=== PATIENT | female | born 1975 | race Hispanic/Latino ===

== ENCOUNTER 2017-03-23 10:16 | Inpatient (IN) | payer MEDICAID ==
[2017-03-23 10:17] VITALS: BMI 21.2
--- NOTE | 2017-03-23 11:49 | C.PDOC ---
History Of Present Illness 41 y/o female presents to emergency department via EMS for public intoxication. Patient admits to drinking alcohol this morning, and "all night, every night". Patient requests detox for alcohol. Denies any other drug use, suicidal ideation , homicidal ideation, or other physical complaints at this time. Time Seen by Provider: 03/23/17 11:15 Chief Complaint (Nursing): Substance Abuse History Per: Patient History/Exam Limitations: no limitations Onset/Duration Of Symptoms: Persistent Current Symptoms Are (Timing): Still Present Modifying Factor(s): Alcohol Associated Symptoms: denies: Suicidal Thoughts, Suicidal Plan Recent travel outside of the [place]: No Past Medical History Reviewed: Historical Data, Nursing Documentation, Vital Signs Vital Signs: Last Vital Signs Temp 98.7 F 03/23/17 15:21 Pulse 90 03/23/17 15:21 Resp 18 03/23/17 15:21 BP 115/75 03/23/17 15:21 Pulse Ox 99 03/23/17 17:49 - Medical History PMH: Anemia (hx), Anxiety, Bipolar Disorder, Depression, Diabetes (Cousin has diabetes), HTN (mother has high blood pressure), Hyperthyroidism, Hypothyroidism , Schizophrenia - [facility] Procedures GROUP SHOE COBBLER FOR SUBSTANCE ABUSE, COGNITIVE BEHAVIORAL (02/22/16) GROUP PSYCHOTHERAPY (05/17/16) INDIVID PSYCHOTHERAP NEC (01/10/15) INDIVIDUAL PSYCHOTHERAPY, BEHAVIORAL (07/14/15) INDIVIDUAL PSYCHOTHERAPY, COGNITIVE-BEHAVIORAL (05/17/16) INDIVIDUAL PSYCHOTHERAPY, SUPPORTIVE (02/22/16) OTHER GROUP THERAPY (01/10/15) Family History: States: Unknown Family Hx - Social History Hx Tobacco Use: Yes (heavy smoker) Hx Alcohol Use: Yes (Occasionally use.) Hx Substance Use: Yes - Immunization History Hx Tetanus Toxoid Vaccination: No Hx Influenza Vaccination: No Hx Pneumococcal Vaccination: No Review Of Systems Except As Marked, All Systems Reviewed And Found Negative. Constitutional: Negative for: Fever, Chills Cardiovascular: Negative for: Chest Pain, Palpitations Respiratory: Negative for: Cough, Shortness of Breath, Wheezing Gastrointestinal: Negative for: Nausea, Vomiting, Abdominal Pain Skin: Negative for: Rash Psych: Negative for: Withdrawal Physical Exam - Physical Exam Appears: Non-toxic, No Acute Distress, Other (awake, alert, in no acute distress ) Skin: Normal Color, Warm, Dry Head: Atraumatic, Normacephalic Eye(s): bilateral: Normal Inspection, PERRL, EOMI Oral Mucosa: Moist Chest: Symmetrical Cardiovascular: Rhythm Regular Respiratory: Normal Breath Sounds, No Rales, No Rhonchi, No Wheezing Gastrointestinal/Abdominal: Soft, No Tenderness, No Guarding, No Rebound Back: Normal Inspection Extremity: Normal ROM, Capillary Refill (< 2 sec. ) Neurological/Psych: Oriented x3, Normal Speech, Normal Cognition ED Course And Treatment - Laboratory Results Result Diagrams: 03/23/17 12:15 03/23/17 12:15 O2 Sat by Pulse Oximetry: 99 (RA) Pulse Ox Interpretation: Normal Progress Note: Patient was medically cleared. Labs reviewed. Crisis patient case coordinator to evaluate patient at bedside. Patient accepted for admission under Dr. Santana. 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 - Scribe Statement The provider has reviewed the documentation as recorded by the Scribe Alfred Bowers All medical record entries made by the Jesseibjoann were at my direction and personally dictated by me. I have reviewed the chart and agree that the record accurately reflects my personal performance of the history, physical exam, medical decision making, and the department course for this patient. I have also personally directed, reviewed, and agree with the discharge instructions and disposition. Decision To Admit - Pt Status Changed To: Hospital Disposition Of: Inpatient - Admit Certification Admit to Inpatient:: After my assessment, the patient will require hospitalization for at least two midnights. This is because of the severity of symptoms shown, intensity of services needed, and/or the medical risk in this patient being treated as an outpatient. - InPatient: Physician Admission Certification: I certify that this patient requires 2 or more midnights of care for the following reason:: Patient will need more then 2 days of inpatient admission for alcohol detox. - . Bed Request Type: Detox Admitting Physician: Angie Santana Patient Diagnosis: Alcohol dependence
[2017-03-23 12:22] LABS: BASO % 0.9 % (0.0-2.0); HEMATOCRIT 38.2 % (34.0-47.0); LYMPH % 23.2 % (20.0-40.0); MEAN CORPUSCULAR HEMOGLOBIN 27.8 pg (27.0-31.0); MEAN CORPUSCULAR HGB CONC 33.4 g/dL (33.0-37.0); MEAN PLATELET VOLUME 8.4 fL (7.2-11.7); MONO # 0.3 K/uL (0.0-0.8); MONO % 6.9 % (0.0-10.0); NRBC % 0.1 % (0.0-2.0); RED CELL DISTRIBUTION WIDTH 17.9 % (11.5-14.5); WHITE BLOOD COUNT 4.2 K/uL (4.8-10.8)
[2017-03-23 12:24] LABS: MEAN CELL VOLUME 83.3 fL (81.0-99.0)
[2017-03-23 12:30] LABS: CHLORIDE 102 mmol/L (98-107)
[2017-03-23 12:31] LABS: POTASSIUM 4.2 mmol/L (3.6-5.2); SODIUM 138 mmol/L (132-148)
[2017-03-23 12:33] LABS: ALB/GLOB RATIO 0.9 (1.0-2.1); ALKALINE PHOSPHATASE 96 U/L (38-126); ALT/SGPT 37 U/L (9-52); AST/SGOT 30 U/L (14-36); BILIRUBIN,TOTAL 0.5 mg/dL (0.2-1.3); BLOOD UREA NITROGEN 14 mg/dL (7-17); CARBON DIOXIDE 26 mmol/L (22-30); GFR AFRICAN-AMERICAN > 60; TOTAL PROTEIN 7.7 g/dL (6.3-8.3)
[2017-03-23 12:34] LABS: ALCOHOL SERUM 95 mg/dl (0-10); CALCIUM 8.6 mg/dl (8.6-10.4); GLUCOSE,RANDOM 78 mg/dL (65-105)
[2017-03-23 13:03] LABS: RBC URINE 11 /hpf (0-3); URINE BACTERIA FEW (<OCC); URINE BILIRUBIN NEGATIVE (NEGATIVE); URINE BLOOD 2+ (NEGATIVE); URINE COLOR Yellow (YELLOW); URINE GLUCOSE (UA) NORMAL (Normal); URINE KETONE NEGATIVE (NEGATIVE); URINE LEUKOCYTE ESTERASE TRACE Leu/uL (Negative); URINE PROTEIN NEGATIVE (NEGATIVE); URINE UROBILINOGEN NORMAL mg/dL (0.2-1.0); WBC URINE 3 /hpf (0-5)
[2017-03-23 14:10] VITALS: RESP 18
[2017-03-23 15:21] VITALS: BP 115/75; PULSE 90; TEMP 98.7
[2017-03-23] MEDS ORDERED: Multiple Vitamins Tab PO SCH (15:30)
[2017-03-23 17:49] VITALS: O2SAT 99
--- NOTE | 2017-03-25 23:01 | PCM.PSYCH ---
Initial Psychiatric Evaluation - Initial Psychiatric Evaluation Type of Admission: Voluntary Legal Status: Capacity Past Psychiatric History - Past Psychiatric History Pertinent Medical Hx (Current Medical&Sleep Prob, Allergies): Allergies Allergy/AdvReac Type Severity Reaction Status Date / Time No Known Allergies Allergy Verified 03/23/17 10:40 Benztropine [Cogentin] 1 mg PO BID #60 tab 05/12/16 Gabapentin [Neurontin] 300 mg PO TID #90 cap 05/12/16 Haloperidol [Haldol] 10 mg PO BID #60 tab 05/12/16 Levothyroxine [Synthroid] 25 mcg PO DAILY@0630 #30 tab 05/12/16 Mirtazapine [Remeron] 30 mg PO HS #30 tab 05/12/16 Sertraline [Zoloft] 200 mg PO DAILY #60 tab 05/12/16 traZODone [Desyrel] 50 mg PO HS #30 tab 05/12/16 Nitrofurantoin Macrocrystals [Macrobid] 1 cap PO BID #9 cap 06/15/16
== END 2017-03-23 15:35 | disposition left against medical advice (07) | DRG 430 ==
LOC: C.ER 10:16 → C.7D 14:38
PROVIDERS: ADMIT Psychiatry & Neurology Psychiatry; ATTEND Psychiatry & Neurology Psychiatry
DX: F31.9 Bipolar disorder, unspecified (principal); F10.220 Alcohol dependence with intoxication, uncomplicated; Y90.4 Blood alcohol level of 80-99 mg/100 ml; F17.210 Nicotine dependence, cigarettes, uncomplicated

== ENCOUNTER 2017-07-15 06:43 | Emergency (ER) | payer MEDICAID ==
[2017-07-15 06:43] VITALS: BMI 21.2
[2017-07-15 06:50] VITALS: BP 139/90; PULSE 102; RESP 20; TEMP 98.3; O2SAT 98
[2017-07-15] MEDS ORDERED: Naproxen 550 mg Tab PO STA (07:20)
--- NOTE | 2017-07-15 07:22 | C.PDOC ---
History Of Present Illness 41-year-old female, presents to the emergency department with complaints of four day duration of runny nose, sore throat and cough. Patient denies fevers, shortness of breath, chest pain, nausea/vomiting, symptoms. change in bowel habits, or any other associated symptoms. No other complaints at this time. Time Seen by Provider: 07/15/17 07:09 Chief Complaint (Nursing): Cough, Cold, Congestion History Per: Patient History/Exam Limitations: no limitations Onset/Duration Of Symptoms: Days Current Symptoms Are (Timing): Still Present Past Medical History Reviewed: Historical Data, Nursing Documentation, Vital Signs Vital Signs: Last Vital Signs Temp 98.3 F 07/15/17 06:48 Pulse 102 H 07/15/17 06:48 Resp 20 07/15/17 06:48 BP 139/90 07/15/17 06:48 Pulse Ox 98 07/15/17 07:22 - Medical History PMH: Anemia (hx), Anxiety, Bipolar Disorder, Depression, Diabetes (Cousin has diabetes), HTN (mother has high blood pressure), Hyperthyroidism, Hypothyroidism , Schizophrenia - [facility] Procedures GROUP BOX SPRING MAKER FOR SUBSTANCE ABUSE, COGNITIVE BEHAVIORAL (02/22/16) GROUP PSYCHOTHERAPY (05/17/16) INDIVID PSYCHOTHERAP NEC (01/10/15) INDIVIDUAL PSYCHOTHERAPY, BEHAVIORAL (07/14/15) INDIVIDUAL PSYCHOTHERAPY, COGNITIVE-BEHAVIORAL (05/17/16) INDIVIDUAL PSYCHOTHERAPY, SUPPORTIVE (02/22/16) OTHER GROUP THERAPY (01/10/15) Family History: States: No Known Family Hx - Social History Hx Tobacco Use: Yes (heavy smoker) Hx Alcohol Use: Yes (Occasionally use.) Hx Substance Use: No - Immunization History Hx Tetanus Toxoid Vaccination: No Hx Influenza Vaccination: No Hx Pneumococcal Vaccination: No Review Of Systems Constitutional: Positive for: Malaise. Negative for: Fever ENT: Positive for: Throat Pain Respiratory: Positive for: Cough. Negative for: Shortness of Breath Gastrointestinal: Negative for: Nausea, Vomiting Musculoskeletal: Negative for: Back Pain Neurological: Negative for: Weakness, Numbness, Headache, Dizziness Physical Exam - Physical Exam Appears: Non-toxic, No Acute Distress Skin: Warm, Dry, No Rash Head: Atraumatic, Normacephalic Eye(s): bilateral: Normal Inspection, PERRL Nose: Normal Oral Mucosa: Moist Lips: Normal Appearing Neck: Normal ROM, Supple Chest: Symmetrical Cardiovascular: Rhythm Regular, No Murmur Respiratory: Normal Breath Sounds, No Accessory Muscle Use Extremity: Normal ROM Neurological/Psych: Oriented x3, Normal Speech ED Course And Treatment O2 Sat by Pulse Oximetry: 98 (on RA) Pulse Ox Interpretation: Normal Progress Note: Patient treated with Naproxen and Tessalon. Disposition Counseled Patient/Family Regarding: Diagnosis, Need For Followup, Rx Given - Disposition Referrals: [facility] [Outside] Disposition: HOME/ ROUTINE Disposition Time: 19:30 Condition: STABLE Additional Instructions: FOLLOW UP WITH YOUR DOCTOR/CLINIC IN 1-2 DAYS USE MEDICATIONS DIRECTED RETURN TO ER IF SYMPTOMS WORSEN Prescriptions: Benzonatate [Tessalon Perles] 100 mg PO BID PRN #15 sgl PRN Reason: Cough Naproxen 375 mg PO BID PRN #20 tablet PRN Reason: pain Instructions: Upper Respiratory Infection (ED), Viral Syndrome (ED) Forms: [employer] (Spanish), Work Excuse Print Language: ESTONIAN - POA Present On Arrival: None - Clinical Impression Clinical Impression: Upper respiratory infection, Viral disease - Scribe Statement The provider has reviewed the documentation as recorded by the Scribe (Jaxon Guevara) All medical record entries made by the Scribe were at my direction and personally dictated by me. I have reviewed the chart and agree that the record accurately reflects my personal performance of the history, physical exam, medical decision making, and the department course for this patient. I have also personally directed, reviewed, and agree with the discharge instructions and disposition.
[2017-07-15] MEDS ORDERED: Naproxen 550 mg Tab PO ONE (07:28)
== END 2017-07-15 07:35 | disposition home or self-care (01) ==
LOC: C.ER 06:43
DX: J06.9 Acute upper respiratory infection, unspecified (principal); F17.210 Nicotine dependence, cigarettes, uncomplicated

== ENCOUNTER 2017-07-16 23:21 | Emergency (ER) | payer MEDICAID ==
[2017-07-16 23:21] VITALS: BMI 21.2
[2017-07-16 23:37] VITALS: BP 126/78; PULSE 102; RESP 20; TEMP 98.6; O2SAT 98
--- NOTE | 2017-07-17 00:44 | C.PDOC ---
History Of Present Illness 41 year old female presents to the ER with a complaint of a cough for the past 3 -4 days. Patient allegedly was seen by her PMD who told her she has the flu andstarted her on medication, however, she reports the cough continues. Denies fever, chills, chest pain, or SOB. Time Seen by Provider: 07/17/17 00:12 Chief Complaint (Nursing): Flu-like Symptoms History Per: Patient History/Exam Limitations: no limitations Onset/Duration Of Symptoms: Days Current Symptoms Are (Timing): Still Present Location Of Pain: None Sick Contacts (Context): None Associated Symptoms: Cough. denies: Fever, Chills, Sputum, Nasal Congestion, Vomiting, Diarrhea Ear Symptoms: Bilateral: None Recent travel outside of the [place]: No Past Medical History Reviewed: Historical Data, Nursing Documentation, Vital Signs Vital Signs: Last Vital Signs Temp 98.6 F 07/16/17 23:33 Pulse 102 H 07/16/17 23:33 Resp 20 07/16/17 23:33 BP 126/78 07/16/17 23:33 Pulse Ox 98 07/17/17 00:57 - Medical History PMH: Anemia (hx), Anxiety, Bipolar Disorder, Depression, Diabetes (Cousin has diabetes), HTN (mother has high blood pressure), Hyperthyroidism, Hypothyroidism , Schizophrenia - [facility] Procedures GROUP TEMPER MILL ROLLER FOR SUBSTANCE ABUSE, COGNITIVE BEHAVIORAL (02/22/16) GROUP PSYCHOTHERAPY (05/17/16) INDIVID PSYCHOTHERAP NEC (01/10/15) INDIVIDUAL PSYCHOTHERAPY, BEHAVIORAL (07/14/15) INDIVIDUAL PSYCHOTHERAPY, COGNITIVE-BEHAVIORAL (05/17/16) INDIVIDUAL PSYCHOTHERAPY, SUPPORTIVE (02/22/16) OTHER GROUP THERAPY (01/10/15) Family History: States: Unknown Family Hx - Social History Hx Tobacco Use: Yes (heavy smoker) Hx Alcohol Use: Yes (Occasionally use.) Hx Substance Use: No - Immunization History Hx Tetanus Toxoid Vaccination: No Hx Influenza Vaccination: No Hx Pneumococcal Vaccination: No Review Of Systems Constitutional: Negative for: Fever, Chills ENT: Negative for: Nose Discharge, Nose Congestion, Throat Pain Cardiovascular: Negative for: Chest Pain, Palpitations Respiratory: Positive for: Cough. Negative for: Shortness of Breath, Sputum, Wheezing Physical Exam - Physical Exam Appears: Non-toxic, No Acute Distress Skin: Normal Color, Warm, Dry Head: Atraumatic, Normacephalic Eye(s): bilateral: Normal Inspection Ear(s): Bilateral: Normal Nose: Normal Oral Mucosa: Moist Throat: Normal, No Erythema, No Exudate Neck: Normal, Supple Chest: Symmetrical, No Tenderness Cardiovascular: Rhythm Regular Respiratory: Normal Breath Sounds, No Rales, No Rhonchi, No Wheezing Gastrointestinal/Abdominal: Soft, No Tenderness Neurological/Psych: Oriented x3, Normal Speech ED Course And Treatment O2 Sat by Pulse Oximetry: 98 (Room air) Pulse Ox Interpretation: Normal Progress Note: Robitussion and prednisone administered. Patient is resting comfortably in the ER in no acute distress, vitals are stable; will discharge home with Rx and instructions to follow up with PMD for further evaluation or return if symptoms worsen. Disposition - Disposition Referrals: Clinic,Med Surg [Primary Care Provider] - Disposition: HOME/ ROUTINE Disposition Time: 00:51 Condition: GOOD Additional Instructions: Follow up with the medical doctor within 1-2 days. Return if worsened. 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 - Scribe Statement The provider has reviewed the documentation as recorded by the Scribjoann Desai All medical record entries made by the Jesseibjoann were at my direction and personally dictated by me. I have reviewed the chart and agree that the record accurately reflects my personal performance of the history, physical exam, medical decision making, and the department course for this patient. I have also personally directed, reviewed, and agree with the discharge instructions and disposition.
[2017-07-17] MEDS ORDERED: guaiFENesin 100 mg/5 ml Syrup UD PO STA (00:45)
[2017-07-17] MEDS ORDERED: guaiFENesin 200 mg/10 ml Syrup UD ONE (00:57)
== END 2017-07-17 01:02 | disposition home or self-care (01) ==
LOC: SUPCPDRO 23:21 → C.ER 23:21
DX: J20.9 Acute bronchitis, unspecified (principal)

== ENCOUNTER 2017-07-17 23:14 | Emergency (ER) | payer MEDICAID ==
[2017-07-17 23:15] VITALS: BMI 21.2
[2017-07-17 23:23] VITALS: BP 112/76; PULSE 118; RESP 18; TEMP 98.4; O2SAT 99
--- NOTE | 2017-07-17 23:40 | C.PDOC ---
History Of Present Illness 41 year old female presents to the ER with a complaint of bilateral eye redness since this morning. She states she had discharge from right eye. She also complains of cough for the past 5 days. Patient states she is taking cough medicine, however the cough continues. Denies fever, chills, chest pain, or SOB. Time Seen by Provider: 07/17/17 23:30 Chief Complaint (Nursing): Cough, Cold, Congestion History Per: Patient History/Exam Limitations: no limitations Onset/Duration Of Symptoms: Days Current Symptoms Are (Timing): Still Present Additional History Per: Prior Records (seen in ED 07/15 and 07/17) Past Medical History Reviewed: Historical Data, Nursing Documentation, Vital Signs Vital Signs: Last Vital Signs Temp 98.4 F 07/17/17 23:16 Pulse 118 H 07/17/17 23:16 Resp 18 07/17/17 23:16 BP 112/76 07/17/17 23:16 Pulse Ox 99 07/17/17 23:40 - Medical History PMH: Anemia (hx), Anxiety, Bipolar Disorder, Depression, Diabetes (Cousin has diabetes), HTN (mother has high blood pressure), Hyperthyroidism, Hypothyroidism , Schizophrenia - [facility] Procedures GROUP WEAVER NARROW FABRICS FOR SUBSTANCE ABUSE, COGNITIVE BEHAVIORAL (02/22/16) GROUP PSYCHOTHERAPY (05/17/16) INDIVID PSYCHOTHERAP NEC (01/10/15) INDIVIDUAL PSYCHOTHERAPY, BEHAVIORAL (07/14/15) INDIVIDUAL PSYCHOTHERAPY, COGNITIVE-BEHAVIORAL (05/17/16) INDIVIDUAL PSYCHOTHERAPY, SUPPORTIVE (02/22/16) OTHER GROUP THERAPY (01/10/15) Family History: States: Unknown Family Hx - Social History Hx Tobacco Use: Yes (heavy smoker) Hx Alcohol Use: Yes Hx Substance Use: No - Immunization History Hx Tetanus Toxoid Vaccination: No Hx Influenza Vaccination: No Hx Pneumococcal Vaccination: No Review Of Systems Constitutional: Negative for: Chills Eyes: Positive for: Redness. Negative for: Pain, Vision Change, Eyelid Inflammation ENT: Positive for: Nose Congestion. Negative for: Ear Pain, Throat Pain Cardiovascular: Negative for: Palpitations Respiratory: Positive for: Cough. Negative for: Wheezing Gastrointestinal: Negative for: Vomiting, Abdominal Pain, Diarrhea Skin: Negative for: Rash Neurological: Negative for: Headache Physical Exam - Physical Exam Appears: Non-toxic, No Acute Distress Skin: Warm, Dry Head: Atraumatic, Normacephalic Eye(s): bilateral: PERRL, EOMI, Other (conjunctival injection, no discharge, normal lashes) Nose: Normal, No Flaring Oral Mucosa: Moist Throat: Normal, No Erythema, No Exudate Neck: Normal ROM Chest: Symmetrical Cardiovascular: Rhythm Regular, No Murmur Respiratory: Normal Breath Sounds, No Rales, No Rhonchi, No Wheezing, Other ( actively coughing) Extremity: Normal ROM, No Tenderness, No Deformity, No Swelling Neurological/Psych: Oriented x3, Normal Speech Gait: Steady ED Course And Treatment O2 Sat by Pulse Oximetry: 99 (room air) Pulse Ox Interpretation: Normal Medical Decision Making Medical Decision Making: Patient with complaints of eye redness and discharge. No vision changes and no eye injury. Patient also coughing and has been seen in ED the past 2 days, treated. Will give Rx for antibiotic eye drops to use. Patient stable for discharge. Disposition Counseled Patient/Family Regarding: Diagnosis, Need For Followup, Rx Given - Disposition Referrals: Hao Rodriguez [Staff Provider] - Disposition: HOME/ ROUTINE Disposition Time: 23:38 Condition: GOOD Additional Instructions: Apply 1-2 drops in eye 3 times a day avoid touching eyes may return to work after 24 hours with meds follow up with optho if symptoms or persist Prescriptions: Moxifloxacin HCl [Vigamox] 1 drop OU TID #1 drops NS Instructions: Upper Respiratory Infection (ED), Conjunctivitis (ED) Forms: [employer] (Bahamian) - POA Present On Arrival: None - Clinical Impression Clinical Impression: Influenza-like illness, Conjunctivitis
== END 2017-07-18 00:07 | disposition home or self-care (01) ==
LOC: C.ER 23:14
DX: J11.1 Influenza due to unidentified influenza virus with other respiratory manifestations (principal); H10.9 Unspecified conjunctivitis; F17.210 Nicotine dependence, cigarettes, uncomplicated

== ENCOUNTER 2018-07-31 20:16 | Emergency (ER) | payer MEDICAID ==
[2018-07-31 20:17] VITALS: BMI 21.2
[2018-07-31 20:31] VITALS: BP 133/86; PULSE 111; RESP 18; TEMP 98.2; O2SAT 96
--- NOTE | 2018-07-31 20:46 | C.PDOC ---
History Of Present Illness 42 year old female presents to the emergency department with complaints of chronic leg edema. Patient is requesting a pill to "make it go down". Patient has a history of homelessness, bipolar disorder, schizophrenia, and alcoholism. Patient has had many prior ED evaluations for the same complaints. Time Seen by Provider: 07/31/18 20:40 Chief Complaint (Nursing): Lower Extremity Problem/Injury History Per: Patient History/Exam Limitations: no limitations Onset/Duration Of Symptoms: Other (chronic) Current Symptoms Are (Timing): Still Present Past Medical History Reviewed: Historical Data, Nursing Documentation, Vital Signs Vital Signs: Last Vital Signs Temp 98.2 F 07/31/18 20:22 Pulse 111 H 07/31/18 20:22 Resp 18 07/31/18 20:22 BP 133/86 07/31/18 20:22 Pulse Ox 96 07/31/18 20:22 - Medical History PMH: Anemia (hx), Anxiety (denies(07/31/18)), Bipolar Disorder (denies(07/31/18)), Depression (denies(07/31/18)), Diabetes (Cousin has diabetes), HTN (mother has high blood pressure), Hyperthyroidism, Hypothyroidism, Schizophrenia (denies(07/31/18)) Denies: Hepatitis, HIV, Chronic Kidney Disease, Seizures, Sexually Transmitted Disease Surgical History: No Surg Hx - [facility] Procedures GROUP BRICK SETTER FOR SUBSTANCE ABUSE, COGNITIVE BEHAVIORAL (02/22/16) GROUP PSYCHOTHERAPY (05/17/16) INDIVID PSYCHOTHERAP NEC (01/10/15) INDIVIDUAL PSYCHOTHERAPY, BEHAVIORAL (07/14/15) INDIVIDUAL PSYCHOTHERAPY, COGNITIVE-BEHAVIORAL (05/17/16) INDIVIDUAL PSYCHOTHERAPY, SUPPORTIVE (02/22/16) OTHER GROUP THERAPY (01/10/15) Family History: States: Unknown Family Hx - Social History Hx Tobacco Use: Yes (heavy smoker) Hx Alcohol Use: Yes Hx Substance Use: No - Immunization History Hx Tetanus Toxoid Vaccination: No Hx Influenza Vaccination: No Hx Pneumococcal Vaccination: No Review Of Systems Except As Marked, All Systems Reviewed And Found Negative. Constitutional: Negative for: Fever, Chills Cardiovascular: Negative for: Chest Pain Respiratory: Negative for: Cough, Shortness of Breath Gastrointestinal: Negative for: Nausea, Vomiting, Abdominal Pain, Diarrhea Musculoskeletal: Positive for: Leg Pain (leg edema) Physical Exam - Physical Exam Appears: Non-toxic, No Acute Distress, Other (obese female) Skin: Normal Color, Warm, Dry Head: Atraumatic, Normacephalic Eye(s): bilateral: Normal Inspection, PERRL, EOMI Oral Mucosa: Moist, Other (alcohol on breath) Throat: Normal, No Erythema Neck: Normal, Supple Chest: Symmetrical, No Tenderness Cardiovascular: Rhythm Regular, No Murmur Respiratory: Normal Breath Sounds, No Rales, No Rhonchi, No Wheezing Gastrointestinal/Abdominal: Soft, No Tenderness Extremity: Swelling (chronic symmetrical bilateral leg edema) Neurological/Psych: Oriented x3, Normal Speech, Normal Cognition ED Course And Treatment O2 Sat by Pulse Oximetry: 96 (RA) Pulse Ox Interpretation: Normal Medical Decision Making Medical Decision Making: chronic leg edema, schizo/bipolar, homeless, alcoholic no acute issues no abd US found stable for d/c. advised to drink less alcohol/fluids Disposition Doctor Will See Patient In The: Office Counseled Patient/Family Regarding: Studies Performed, Diagnosis - Disposition Referrals: Alcoholics Anonymous [Outside] [facility] [Outside] [employer] [facility] [Outside] [facility] [Outside] [facility] [Outside] Disposition: HOME/ ROUTINE Disposition Time: 20:45 Condition: GOOD Additional Instructions: drink less alcohol and fluids to avoid leg edema outpatient follow-up for your psych and homeless issues. Instructions: Alcohol Abuse and Alcoholism (DC) Forms: [employer] (Montserratian) - Clinical Impression Clinical Impression: Alcohol abuse, Bipolar 1 disorder - Scribe Statement The provider has reviewed the documentation as recorded by the Scribe (Corby Esteves) Provider Attestation: All medical record entries made by the Scribe were at my direction and personally dictated by me. I have reviewed the chart and agree that the record accurately reflects my personal performance of the history, physical exam, medical decision making, and the department course for this patient. I have also personally directed, reviewed, and agree with the discharge instructions and disposition.
== END 2018-07-31 20:54 | disposition home or self-care (01) ==
LOC: C.ER 20:16
DX: F31.9 Bipolar disorder, unspecified (principal); F10.10 Alcohol abuse, uncomplicated; F20.9 Schizophrenia, unspecified; Z59.0 Homelessness; F17.200 Nicotine dependence, unspecified, uncomplicated